=== PATIENT | male | born 1990 | race Caucasian/White ===

== ENCOUNTER 2016-07-04 10:40 | Emergency (ER) | payer SELFPAY ==
[~2016-07-04] VITALS: Ht 190.5 cm; Wt 107.1 kg
[~2016-07-04 10:40] MED LIST: XANAX0.5 MG PO
[2016-07-04 12:58] LABS: HEMATOCRIT 45.1 % (38.0-50.0); MCH 31.5 PG (29.0-34.0); MCV 89.8 FL (86-99); PLATELET COUNT 211 K/uL (156-360); RBC DIS.WIDTH-CV 12.7 % (11.8-14.6); RBC DIS.WIDTH-SD 41.2 % (39-53); RED BLOOD COUNT 5.02 M/uL (4.00-5.50); WHITE BLOOD COUNT 7.2 K/uL (4.1-10.2)
[2016-07-04 13:05] LABS: CHLORIDE 105 mEq/L (99-109); POTASSIUM 4.5 mEq/L (3.7-5.4); SODIUM 138 mEq/L (136-147)
[2016-07-04 13:07] LABS: GLUCOSE 95 mg/dL (70-99)
[2016-07-04 13:08] LABS: ANION GAP 8 MEQ/L (2-14)
[2016-07-04 13:09] LABS: TOTAL BILIRUBIN 0.9 mg/dL (0.0-1.0)
[2016-07-04 13:11] LABS: ALKALINE PHOSPHATASE 113 IU/L (3-129); GFR ESTIMATE (CALCULATED) > 59 mL/min/
[2016-07-04 13:12] LABS: UREA NITROGEN (BUN) 11 mg/dL (9-23)
[2016-07-04 13:14] LABS: LIPASE 10 U/L (1.0-51.0)
[2016-07-04 13:25] LABS: ADD MIUA? YES; BILIRUBIN NEGATIVE; BLOOD NEGATIVE; COLOR YELLOW ((YELLOW)); GLUCOSE (STRIP) NEGATIVE; KETONES NEGATIVE; LEUKOCYTES SMALL; NITRITE NEGATIVE; PROTEIN (STRIP) NEGATIVE; SPECIFIC GRAVITY 1.024 (1.000-1.030)
[2016-07-04 13:58] LABS: EPITHELIAL CELLS 1+; MUCUS NONE SEEN; RED BLOOD CELLS 0-5 /HPF (0-5)
[2016-07-04 13:59] LABS: BACTERIA 1+; CASTS NONE SEEN /LPF; CRYSTALS NONE SEEN; UCUL ADDED? NO
[2016-07-04 15:28] VITALS: BP 145/76
== END 2016-07-04 15:29 | disposition home or self-care (01) ==
LOC: EME 10:40 → RME 10:40
PROVIDERS: Physician Assistant Medical
DX: K80.20 Calculus of gallbladder without cholecystitis without obstruction (principal); R79.89 Other specified abnormal findings of blood chemistry; F17.200 Nicotine dependence, unspecified, uncomplicated
CPT/HCPCS: 76705; 80053; 81003; 83690; 85027; 87086; 99281; 99284

== ENCOUNTER 2016-07-17 15:38 | Emergency (ER) | payer OTHER ==
[2016-07-17 16:21] LABS: EOSINOPHIL (%) 0.7 % (0-5); EOSINOPHIL COUNT 0.1 K/uL (0-0.3); HEMATOCRIT 45.4 % (38.0-50.0); IMMATURE GRANULOCYTE (%) 0.1 % (0.0-0.7); IMMATURE GRANULOCYTE COUNT 0.1 K/uL; LYMPHOCYTE COUNT 3.3 K/uL (1.0-2.8); MCH 31.2 PG (29.0-34.0); MCHC 35.2 G/DL (30.0-36.0); MCV 88.5 FL (86-99); MONOCYTE (%) 6.7 % (3-12); MONOCYTE COUNT 0.7 K/uL (0-0.8); NEUTROPHIL (%) 60.7 % (45-76); NEUTROPHIL COUNT 6.3 K/uL (1.8-6.4); RBC DIS.WIDTH-CV 12.6 % (11.8-14.6); RED BLOOD COUNT 5.13 M/uL (4.00-5.50)
[2016-07-17 16:22] LABS: PLATELET COUNT 302 K/uL (156-360); WHITE BLOOD COUNT 10.3 K/uL (4.1-10.2)
[2016-07-17 16:30] LABS: AMYLASE 42 IU/L (1-118); CHLORIDE 103 mEq/L (99-109); SODIUM 139 mEq/L (136-147)
[2016-07-17 16:31] LABS: GLUCOSE 97 mg/dL (70-99)
[2016-07-17 16:33] LABS: ANION GAP 13 MEQ/L (2-14)
[2016-07-17 16:35] LABS: SERUM ETHYL ALCOHOL < 10 mg/dL
[2016-07-17 16:36] LABS: GFR ESTIMATE (CALCULATED) > 59 mL/min/; UREA NITROGEN (BUN) 14 mg/dL (9-23)
[2016-07-17 16:39] LABS: LIPASE 11 U/L (1.0-51.0)
[2016-07-17] MEDS ORDERED: PERCOCET 5/31 TABLET PO (20:08)
[2016-07-18] MEDS ORDERED: ZOFRAN ODT4 MG PO (16:34)
== END 2016-07-17 20:56 | disposition home or self-care (01) ==
LOC: TRA 15:38
PROVIDERS: Emergency Medicine
DX: S81.012A Laceration without foreign body, left knee, initial encounter (principal); S92.322A Displaced fracture of second metatarsal bone, left foot, initial encounter for closed fracture; S92.332A Displaced fracture of third metatarsal bone, left foot, initial encounter for closed fracture; S92.342A Displaced fracture of fourth metatarsal bone, left foot, initial encounter for closed fracture; V29.40XA Motorcycle driver injured in collision with unspecified motor vehicles in traffic accident, initial encounter; Z23 Encounter for immunization; S80.212A Abrasion, left knee, initial encounter; S50.311A Abrasion of right elbow, initial encounter
CPT/HCPCS: 71010; 73560; 73630; 80048; 81003; 82150; 83690; 85025; 86850; 86900; 86901; 99281; 99285; G0480; J0690; J1170; J2405; J3010

== ENCOUNTER 2016-07-18 11:41 | Emergency (ER) | payer OTHER ==
[~2016-07-18] VITALS: Ht 190.5 cm; Wt 111.0 kg
[~2016-07-18 11:41] MED LIST changes: +PERCOCET 5/31 TABLET PO
[2016-07-18 12:38] LABS: HEMATOCRIT 45.1 % (38.0-50.0); MCH 31.5 PG (29.0-34.0); MCHC 35.3 G/DL (30.0-36.0); MCV 89.3 FL (86-99); MEAN PLAT.VOLUME 10.2 uM^3 (9.0-12.4); PLATELET COUNT 249 K/uL (156-360); RBC DIS.WIDTH-CV 12.7 % (11.8-14.6); RBC DIS.WIDTH-SD 40.7 % (39-53); RED BLOOD COUNT 5.05 M/uL (4.00-5.50); WHITE BLOOD COUNT 12.1 K/uL (4.1-10.2)
[2016-07-18 12:49] LABS: CHLORIDE 107 mEq/L (99-109); POTASSIUM 3.9 mEq/L (3.7-5.4); SODIUM 141 mEq/L (136-147)
[2016-07-18 12:52] LABS: GLUCOSE 104 mg/dL (70-99)
[2016-07-18 12:53] LABS: ANION GAP 13 MEQ/L (2-14)
[2016-07-18 12:54] LABS: TOTAL BILIRUBIN 0.9 mg/dL (0.0-1.0)
[2016-07-18 12:55] LABS: ALKALINE PHOSPHATASE 86 IU/L (3-129)
[2016-07-18 12:56] LABS: GFR ESTIMATE (CALCULATED) > 59 mL/min/
[2016-07-18 12:57] LABS: DIRECT BILIRUBIN 0.3 mg/dL (0.0-0.3); UREA NITROGEN (BUN) 15 mg/dL (9-23)
[2016-07-18 12:59] LABS: LIPASE 5 U/L (1.0-51.0)
[2016-07-18] MEDS ORDERED: ZOFRAN ODT4 MG PO (16:34)
[2016-07-18 17:03] VITALS: BP 146/68
[2016-07-19] MEDS ORDERED: PROTONIX40 MG PO (03:51)
== END 2016-07-18 17:11 | disposition home or self-care (01) ==
LOC: EME 11:41
PROVIDERS: Emergency Medicine
DX: R10.32 Left lower quadrant pain (principal); R11.10 Vomiting, unspecified; F17.200 Nicotine dependence, unspecified, uncomplicated; V99.XXXA Unspecified transport accident, initial encounter
CPT/HCPCS: 74177; 80048; 80076; 83605; 83690; 85027; 86850; 86900; 86901; 99281; 99285; J1170; J2405; J7030

== ENCOUNTER 2016-07-18 21:38 | Emergency (ER) | payer OTHER ==
[~2016-07-18] VITALS: Ht 190.5 cm; Wt 105.6 kg
[~2016-07-18 21:38] MED LIST changes: +ZOFRAN ODT4 MG PO
[2016-07-18 22:45] LABS: HEMATOCRIT 44.7 % (38.0-50.0); MCH 31.5 PG (29.0-34.0); MCHC 34.9 G/DL (30.0-36.0); MCV 90.1 FL (86-99); PLATELET COUNT 268 K/uL (156-360); RBC DIS.WIDTH-CV 12.7 % (11.8-14.6); RED BLOOD COUNT 4.96 M/uL (4.00-5.50)
[2016-07-18 22:46] LABS: WHITE BLOOD COUNT 16.1 K/uL (4.1-10.2)
[2016-07-18 22:50] LABS: CHLORIDE 107 mEq/L (99-109); POTASSIUM 3.8 mEq/L (3.7-5.4); SODIUM 139 mEq/L (136-147)
[2016-07-18 22:53] LABS: GLUCOSE 110 mg/dL (70-99)
[2016-07-18 22:54] LABS: ANION GAP 13 MEQ/L (2-14)
[2016-07-18 22:56] LABS: ALKALINE PHOSPHATASE 86 IU/L (3-129); GFR ESTIMATE (CALCULATED) > 59 mL/min/
[2016-07-18 22:57] LABS: UREA NITROGEN (BUN) 14 mg/dL (9-23)
[2016-07-18 22:58] LABS: DIRECT BILIRUBIN 0.3 mg/dL (0.0-0.3)
[2016-07-18 23:00] LABS: LIPASE 6 U/L (1.0-51.0)
[2016-07-19] MEDS ORDERED: PROTONIX40 MG PO (03:51)
[2016-07-19 03:59] VITALS: BP 116/77
[2016-07-20] MEDS ORDERED: NORCO 5/3251 TABLET PO (16:00)
[2016-07-20] MEDS ORDERED: REGLAN10 MG PO (16:00)
[2016-07-20] MEDS ORDERED: THORAZINE25 MG PO (16:00)
[2016-07-20] MEDS ORDERED: MILK OF MAGN PO (16:00)
[2016-07-20] MEDS ORDERED: NAPROXEN500 MG PO (16:00)
== END 2016-07-19 04:01 | disposition home or self-care (01) ==
LOC: EME 21:38
DX: R10.30 Lower abdominal pain, unspecified (principal); R11.10 Vomiting, unspecified; F17.200 Nicotine dependence, unspecified, uncomplicated
CPT/HCPCS: 80048 91; 80076; 83690; 85027; 86850; 86900; 86901; 99281; 99285; C9113; J2270; J2405; J2765; J7030

== ENCOUNTER 2016-07-20 11:09 | Emergency (ER) | payer OTHER ==
[~2016-07-20] VITALS: Ht 190.5 cm; Wt 111.6 kg
[~2016-07-20 11:09] MED LIST changes: +PROTONIX40 MG PO
[2016-07-20 12:37] LABS: HEMATOCRIT 44.6 % (38.0-50.0); MCH 31.6 PG (29.0-34.0); MCHC 35.4 G/DL (30.0-36.0); MCV 89.2 FL (86-99); PLATELET COUNT 256 K/uL (156-360); RBC DIS.WIDTH-CV 12.4 % (11.8-14.6); RBC DIS.WIDTH-SD 39.9 % (39-53); WHITE BLOOD COUNT 11.8 K/uL (4.1-10.2)
[2016-07-20 12:48] LABS: CHLORIDE 105 mEq/L (99-109); POTASSIUM 3.9 mEq/L (3.7-5.4); SODIUM 141 mEq/L (136-147)
[2016-07-20 12:50] LABS: GLUCOSE 99 mg/dL (70-99)
[2016-07-20 12:52] LABS: ANION GAP 13 MEQ/L (2-14)
[2016-07-20 12:54] LABS: GFR ESTIMATE (CALCULATED) > 59 mL/min/
[2016-07-20 12:55] LABS: UREA NITROGEN (BUN) 13 mg/dL (9-23)
[2016-07-20] MEDS ORDERED: REGLAN10 MG PO (16:00)
[2016-07-20] MEDS ORDERED: THORAZINE25 MG PO (16:00)
[2016-07-20] MEDS ORDERED: MILK OF MAGN PO (16:00)
[2016-07-20] MEDS ORDERED: NORCO 5/3251 TABLET PO (16:00)
[2016-07-20] MEDS ORDERED: NAPROXEN500 MG PO (16:00)
[2016-07-20 17:17] VITALS: BP 148/92
== END 2016-07-20 17:15 | disposition home or self-care (01) ==
LOC: EME 11:09
DX: R11.2 Nausea with vomiting, unspecified (principal); T40.2X5A Adverse effect of other opioids, initial encounter; R06.6 Hiccough; K59.03 Drug induced constipation; D72.829 Elevated white blood cell count, unspecified; S81.012D Laceration without foreign body, left knee, subsequent encounter; F17.200 Nicotine dependence, unspecified, uncomplicated
CPT/HCPCS: 80048; 85027; 86850; 86900; 86901; 99281; 99285; J2765; J3010; J3230; J7040

== ENCOUNTER 2016-09-26 16:32 | Emergency (ER) | payer SELFPAY ==
[~2016-09-26] VITALS: Ht 190.5 cm; Wt 103.0 kg
[~2016-09-26 16:32] MED LIST changes: +MILK OF MAGN PO; +NAPROXEN500 MG PO; +NORCO 5/3251 TABLET PO; +REGLAN10 MG PO; +THORAZINE25 MG PO
[2016-09-26] MEDS ORDERED: ZOFRAN ODT4 MG PO (18:13)
[2016-09-26] MEDS ORDERED: FIORICET 50-301 EACH PO (18:13)
[2016-09-26] MEDS ORDERED: MOTRIN800 MG PO (18:13)
[2016-09-26 18:30] VITALS: BP 139/85
== END 2016-09-26 18:31 | disposition home or self-care (01) ==
LOC: EXP 16:32 → EME 16:32 → EXP 18:31
DX: F07.81 Postconcussional syndrome (principal); F17.200 Nicotine dependence, unspecified, uncomplicated
CPT/HCPCS: 99281; 99284; J1885

== ENCOUNTER 2017-05-25 23:35 | Emergency (ER) | payer OTHER ==
[~2017-05-25] VITALS: Ht 190.5 cm; Wt 99.5 kg
[~2017-05-25 23:35] MED LIST changes: +FIORICET 50-301 EACH PO; +MOTRIN800 MG PO
[2017-05-26 01:24] LABS: MCH 30.9 PG (29.0-34.0); MCHC 34.4 G/DL (30.0-36.0); MCV 89.9 FL (86-99); MEAN PLAT.VOLUME 9.6 uM^3 (9.0-12.4); PLATELET COUNT 204 K/uL (156-360); RBC DIS.WIDTH-CV 12.6 % (11.8-14.6); RBC DIS.WIDTH-SD 41.2 % (39-53); RED BLOOD COUNT 4.56 M/uL (4.00-5.50); WHITE BLOOD COUNT 8.3 K/uL (4.1-10.2)
[2017-05-26 01:35] LABS: CHLORIDE 107 mEq/L (99-109); POTASSIUM 3.9 mEq/L (3.7-5.4); SODIUM 140 mEq/L (136-147)
[2017-05-26 01:37] LABS: GLUCOSE 96 mg/dL (70-99)
[2017-05-26 01:38] LABS: ANION GAP 9 MEQ/L (2-14)
[2017-05-26 01:41] LABS: GFR ESTIMATE (CALCULATED) > 59 mL/min/; UREA NITROGEN (BUN) 20 mg/dL (9-23)
[2017-05-26] MEDS ORDERED: FIORICET 50-301 EAC1 PO (02:07)
[2017-05-26] MEDS ORDERED: REGLAN10 MG PO (02:07)
[2017-05-26 02:30] VITALS: BP 109/75
== END 2017-05-26 02:33 | disposition home or self-care (01) ==
LOC: EME 23:35
PROVIDERS: Physician Assistant
DX: F07.81 Postconcussional syndrome (principal); R55 Syncope and collapse; T43.016A Underdosing of tricyclic antidepressants, initial encounter; Z91.128 Patient's intentional underdosing of medication regimen for other reason; J45.909 Unspecified asthma, uncomplicated; F17.200 Nicotine dependence, unspecified, uncomplicated
CPT/HCPCS: 70450; 71020; 80048; 85027; 93005; 99281; 99284; J8540

== ENCOUNTER 2017-10-22 17:56 | Emergency (ER) | payer OTHER ==
[~2017-10-22] VITALS: Ht 190.5 cm; Wt 104.9 kg
[~2017-10-22 17:56] MED LIST changes: +FIORICET 50-301 EAC1 PO
[2017-10-22 18:01] VITALS: BP 146/87
[2017-10-22 18:21] LABS: HEMATOCRIT 41.5 % (38.0-50.0); MCH 31.8 PG (29.0-34.0); MCHC 36.1 G/DL (30.0-36.0); MCV 87.9 FL (86-99); NRBC (%) 0.2 /100 WBC (0-0); PLATELET COUNT 249 K/uL (156-360); RBC DIS.WIDTH-CV 12.3 % (11.8-14.6); RBC DIS.WIDTH-SD 39.5 % (39-53); RED BLOOD COUNT 4.72 M/uL (4.00-5.50); WHITE BLOOD COUNT 9.5 K/uL (4.1-10.2)
[2017-10-22 18:29] LABS: CHLORIDE 107 mEq/L (99-109); POTASSIUM 3.8 mEq/L (3.7-5.4); SODIUM 141 mEq/L (136-147)
[2017-10-22 18:31] LABS: GLUCOSE 84 mg/dL (70-99)
[2017-10-22 18:35] LABS: CREATININE 1.4 mg/dL (0.6-1.3); GFR ESTIMATE (CALCULATED) > 59 mL/min/ (58.99-99999)
[2017-10-22 18:36] LABS: UREA NITROGEN (BUN) 14 mg/dL (9-23)
[2017-10-22 18:42] LABS: TROP-I INTERPRETATION NEGATIVE; TROPONIN-I < 0.01 ng/mL (0.0-0.30)
[2017-10-22] MEDS ORDERED: ATARAX,VISTARIL50 MG PO (19:18)
== END 2017-10-22 19:30 | disposition left against medical advice (07) ==
LOC: EME 17:56
DX: R07.9 Chest pain, unspecified (principal); F41.9 Anxiety disorder, unspecified; J45.909 Unspecified asthma, uncomplicated; F17.200 Nicotine dependence, unspecified, uncomplicated
CPT/HCPCS: 71046; 80048; 84484; 85027; 93005; 99281; 99284

== ENCOUNTER 2017-11-29 13:13 | Emergency (ER) | payer OTHER ==
[~2017-11-29] VITALS: Ht 190.5 cm; Wt 104.4 kg
[~2017-11-29 13:13] MED LIST changes: +ATARAX,VISTARIL50 MG PO
[2017-11-29 14:32] LABS: HEMATOCRIT 46.2 % (38.0-50.0); HEMOGLOBIN 16.4 G/DL (12.5-16.6); MCH 31.2 PG (29.0-34.0); MCHC 35.5 G/DL (30.0-36.0); MCV 87.8 FL (86-99); PLATELET COUNT 197 K/uL (156-360); RBC DIS.WIDTH-CV 12.6 % (11.8-14.6); RBC DIS.WIDTH-SD 40.9 % (39-53); RED BLOOD COUNT 5.26 M/uL (4.00-5.50); WHITE BLOOD COUNT 6.9 K/uL (4.1-10.2)
[2017-11-29 14:42] LABS: ALBUMIN 4.3 g/dL (3.2-4.8)
[2017-11-29 14:43] LABS: CHLORIDE 104 mEq/L (99-109); POTASSIUM 3.8 mEq/L (3.7-5.4); SODIUM 138 mEq/L (136-147)
[2017-11-29 14:45] LABS: GLUCOSE 107 mg/dL (70-99); TOTAL PROTEIN 7.3 g/dL (6.4-8.3)
[2017-11-29 14:47] LABS: TOTAL BILIRUBIN 0.8 mg/dL (0.0-1.0)
[2017-11-29 14:48] LABS: ALKALINE PHOSPHATASE 83 IU/L (3-129); CREATININE 1.1 mg/dL (0.6-1.3); GFR ESTIMATE (CALCULATED) > 59 mL/min/ (58.99-99999)
[2017-11-29 14:50] LABS: AST (GOT) 20 IU/L (2-34); UREA NITROGEN (BUN) 19 mg/dL (9-23)
[2017-11-29 14:51] LABS: ALT (GPT) 57 IU/L (3-49)
[2017-11-29 14:52] LABS: SERUM ETHYL ALCOHOL < 10 mg/dL
[2017-11-29 14:55] LABS: LIPASE 11 U/L (1.0-51.0)
[2017-11-29 15:06] LABS: TROP-I INTERPRETATION NEGATIVE; TROPONIN-I 0.01 ng/mL (0.0-0.30)
[2017-11-29] MEDS ORDERED: ZOFRAN4 MG PO (16:04)
[2017-11-29 16:10] VITALS: BP 136/76
[2017-11-30] MEDS ORDERED: ANXIETY PO (11:18)
== END 2017-11-29 16:26 | disposition home or self-care (01) ==
LOC: EME 13:13
PROVIDERS: Emergency Medicine
DX: K52.9 Noninfective gastroenteritis and colitis, unspecified (principal); J45.909 Unspecified asthma, uncomplicated; F41.9 Anxiety disorder, unspecified; F17.200 Nicotine dependence, unspecified, uncomplicated
CPT/HCPCS: 80053; 81003; 83690; 84484; 85027; 93005; 99281; 99285; G0480; J2405; J7030

== ENCOUNTER 2017-12-01 21:54 | Emergency (ER) | payer OTHER ==
[~2017-12-01] VITALS: Ht 190.5 cm; Wt 105.9 kg
[~2017-12-01 21:54] MED LIST changes: +ANXIETY PO; +ZOFRAN4 MG PO
[2017-12-01 22:36] LABS: HEMATOCRIT 41.9 % (38.0-50.0); HEMOGLOBIN 15.1 G/DL (12.5-16.6); MCH 31.9 PG (29.0-34.0); MCV 88.4 FL (86-99); PLATELET COUNT 223 K/uL (156-360); RBC DIS.WIDTH-CV 12.4 % (11.8-14.6); RBC DIS.WIDTH-SD 40.4 % (39-53); RED BLOOD COUNT 4.74 M/uL (4.00-5.50); WHITE BLOOD COUNT 7.4 K/uL (4.1-10.2)
[2017-12-01 22:49] LABS: ALBUMIN 4.5 g/dL (3.2-4.8); CHLORIDE 107 mEq/L (99-109); POTASSIUM 3.7 mEq/L (3.7-5.4); SODIUM 140 mEq/L (136-147)
[2017-12-01 22:51] LABS: GLUCOSE 113 mg/dL (70-99)
[2017-12-01 22:52] LABS: TOTAL PROTEIN 7.2 g/dL (6.4-8.3)
[2017-12-01 22:53] LABS: TOTAL BILIRUBIN 0.5 mg/dL (0.0-1.0)
[2017-12-01 22:55] LABS: ALKALINE PHOSPHATASE 97 IU/L (3-129); CREATININE 1.1 mg/dL (0.6-1.3); GFR ESTIMATE (CALCULATED) > 59 mL/min/ (58.99-99999)
[2017-12-01 22:56] LABS: UREA NITROGEN (BUN) 14 mg/dL (9-23)
[2017-12-01 22:58] LABS: ALT (GPT) 85 IU/L (3-49)
[2017-12-01 23:06] LABS: AST (GOT) 37 IU/L (2-34)
[2017-12-01 23:57] LABS: APPEARANCE CLEAR ((CLEAR)); BILIRUBIN NEGATIVE; BLOOD NEGATIVE; COLOR YELLOW ((YELLOW)); GLUCOSE (STRIP) NEGATIVE; KETONES NEGATIVE; LEUKOCYTES NEGATIVE; NITRITE NEGATIVE; PROTEIN (STRIP) NEGATIVE; SPECIFIC GRAVITY 1.028 (1.000-1.030); UCUL ADDED? NO
[2017-12-02] MEDS ORDERED: PHENERGAN25 MG PR (00:19)
[2017-12-02] MEDS ORDERED: PERCOCET 5/31 TABLET PO (00:19)
[2017-12-02 00:36] VITALS: BP 132/86
== END 2017-12-02 00:37 | disposition home or self-care (01) ==
LOC: EME 21:54
DX: K80.20 Calculus of gallbladder without cholecystitis without obstruction (principal); J45.909 Unspecified asthma, uncomplicated; F41.9 Anxiety disorder, unspecified; F17.200 Nicotine dependence, unspecified, uncomplicated
CPT/HCPCS: 74176; 80053; 81003; 85027; 93005; 99281; 99284; J2765; J7030

== ENCOUNTER 2018-01-08 11:47 | Emergency (ER) | payer OTHER ==
[~2018-01-08] VITALS: Ht 190.5 cm; Wt 107.8 kg
[~2018-01-08 11:47] MED LIST changes: +PHENERGAN25 MG PR
[2018-01-08 11:55] VITALS: BP 132/82
[2018-01-08] MEDS ORDERED: ERYTHROMYC1 APPLICAT LEFT EYE (22:56)
[2018-01-08] MEDS ORDERED: TOBREX5 ML LEFT EYE (22:56)
== END 2018-01-08 12:37 | disposition left against medical advice (07) ==
LOC: EME 11:47
DX: S05.92XA Unspecified injury of left eye and orbit, initial encounter (principal); Z53.21 Procedure and treatment not carried out due to patient leaving prior to being seen by health care provider

== ENCOUNTER 2018-01-08 22:01 | Emergency (ER) | payer OTHER ==
[~2018-01-08] VITALS: Ht 190.5 cm; Wt 108.5 kg
[2018-01-08] MEDS ORDERED: TOBREX5 ML LEFT EYE (22:56)
[2018-01-08] MEDS ORDERED: ERYTHROMYC1 APPLICAT LEFT EYE (22:56)
[2018-01-08 23:08] VITALS: BP 144/87
== END 2018-01-08 22:57 | disposition home or self-care (01) ==
LOC: EME 22:01
DX: T15.02XA Foreign body in cornea, left eye, initial encounter (principal); F17.200 Nicotine dependence, unspecified, uncomplicated
CPT/HCPCS: 99281; 99283

== ENCOUNTER 2018-01-21 09:05 | Day surgery (SDC) | payer OTHER ==
[~2018-01-21] VITALS: Ht 190.5 cm; Wt 108.0 kg
[~2018-01-21 09:05] MED LIST changes: +ERYTHROMYC1 APPLICAT LEFT EYE; +FLEXERIL5 MG PO; +TOBREX5 ML LEFT EYE
[2018-01-21 09:40] VITALS: BP 137/73
[2018-01-21 18:31] VITALS: BP 136/67
[2018-01-21 23:06] VITALS: BP 114/61
[2018-01-22 04:39] VITALS: BP 141/84
[2018-01-22 05:39] LABS: HEMATOCRIT 39.8 % (38.0-50.0); HEMOGLOBIN 13.7 G/DL (12.5-16.6); MCH 30.3 PG (29.0-34.0); MCHC 34.4 G/DL (30.0-36.0); MCV 88.1 FL (86-99); PLATELET COUNT 226 K/uL (156-360); RBC DIS.WIDTH-CV 12.5 % (11.8-14.6); RBC DIS.WIDTH-SD 40.3 % (39-53); RED BLOOD COUNT 4.52 M/uL (4.00-5.50); WHITE BLOOD COUNT 13.3 K/uL (4.1-10.2)
[2018-01-22 05:58] LABS: ALBUMIN 4.2 G/DL (3.2-4.8); ALKALINE PHOSPHATASE 57 IU/L (3-129); ALT (GPT) 137 IU/L (3-49); AST (GOT) 65 IU/L (2-34); CHLORIDE 105 MEQ/L (99-109); GFR ESTIMATE (CALCULATED) > 59 mL/min/ (58.99-99999); GLUCOSE 107 mg/dL (70-99); MAGNESIUM 2.2 mg/dl (1.3-2.7); PHOSPHORUS 4.1 mg/dL (2.5-4.9); POTASSIUM 3.9 MEQ/L (3.7-5.4); SODIUM 139 MEQ/L (136-147); TOTAL BILIRUBIN 0.9 MG/DL (0.0-1.0); TOTAL PROTEIN 6.5 G/DL (6.4-8.3); UREA NITROGEN (BUN) 12 mg/dL (9-23)
[2018-01-22 08:25] VITALS: BP 123/83
[2018-01-22] MEDS ORDERED: ETH-OXYDOS20 MG/1 ML PO (11:43)
[2018-01-22] MEDS ORDERED: PROTONIX40 MG PO (11:43)
[2018-01-22 11:56] VITALS: BP 115/67
[2018-01-22 16:14] VITALS: BP 130/81
[2018-01-22 19:40] VITALS: BP 134/79
[2018-01-22 23:25] VITALS: BP 142/94
[2018-01-23 03:30] VITALS: BP 132/93
[2018-01-23 07:54] VITALS: BP 140/83
[2018-01-23 08:49] LABS: HEMATOCRIT 39.9 % (38.0-50.0); HEMOGLOBIN 13.8 G/DL (12.5-16.6); MCH 30.5 PG (29.0-34.0); MCHC 34.6 G/DL (30.0-36.0); MCV 88.1 FL (86-99); PLATELET COUNT 188 K/uL (156-360); RBC DIS.WIDTH-CV 12.4 % (11.8-14.6); RBC DIS.WIDTH-SD 39.8 % (39-53); RED BLOOD COUNT 4.53 M/uL (4.00-5.50); WHITE BLOOD COUNT 11.3 K/uL (4.1-10.2)
[2018-01-23 09:12] LABS: ALBUMIN 4.2 G/DL (3.2-4.8); ALKALINE PHOSPHATASE 68 IU/L (3-129); ALT (GPT) 208 IU/L (3-49); AST (GOT) 96 IU/L (2-34); CHLORIDE 101 MEQ/L (99-109); CREATININE 1.1 MG/DL (0.6-1.3); GFR ESTIMATE (CALCULATED) > 59 mL/min/ (58.99-99999); GLUCOSE 94 mg/dL (70-99); POTASSIUM 3.9 MEQ/L (3.7-5.4); SODIUM 138 MEQ/L (136-147); TOTAL BILIRUBIN 1.3 MG/DL (0.0-1.0); TOTAL PROTEIN 6.8 G/DL (6.4-8.3); UREA NITROGEN (BUN) 10 mg/dL (9-23)
[2018-01-23 11:55] VITALS: BP 140/83
[2018-01-23] MEDS ORDERED: PERCOCET 5/31 TABLET PO (19:54)
== END 2018-01-23 14:03 | disposition home or self-care (01) ==
LOC: SDC 09:05 → 2SOUTH 15:44 → 2EAST 15:44 → ENRESERV 15:45 → SDC 17:24 → 2EAST 18:02
PROVIDERS: Surgery
PROC: 0DJ08ZZ Inspection of Upper Intestinal Tract, Via Natural or Artificial Opening Endoscopic (ICD-10-PCS; principal; 2018-01-21)
PROC: 0DV44ZZ Restriction of Esophagogastric Junction, Percutaneous Endoscopic Approach (ICD-10-PCS; principal; 2018-01-21)
PROC: 0T7D8ZZ Dilation of Urethra, Via Natural or Artificial Opening Endoscopic (ICD-10-PCS; principal; 2018-01-21)
PROC: 0BQT4ZZ Repair Diaphragm, Percutaneous Endoscopic Approach (ICD-10-PCS; principal; 2018-01-21)
PROC: 0FT44ZZ Resection of Gallbladder, Percutaneous Endoscopic Approach (ICD-10-PCS; principal; 2018-01-21)
DX: K80.10 Calculus of gallbladder with chronic cholecystitis without obstruction (principal); K21.9 Gastro-esophageal reflux disease without esophagitis; K44.9 Diaphragmatic hernia without obstruction or gangrene; N35.9 Urethral stricture, unspecified; F41.9 Anxiety disorder, unspecified; J45.909 Unspecified asthma, uncomplicated; F17.200 Nicotine dependence, unspecified, uncomplicated
CPT/HCPCS: 80053; 83735; 84100; 85027; 88304; C1769; C9113; G0378; J0131; J1100; J1170; J2001; J2250; J2710; J2795; J3010; J3475; J7120; J7643; S0074